=== PATIENT | female | born 2005 | race Caucasian/White ===

== ENCOUNTER 2024-01-21 16:19 | Emergency (ER) | payer BC, MEDICAID | END 2024-01-21 17:02 | disposition left against medical advice (07) | LOC: MW.ED 16:19 | DX: Z53.21 Procedure and treatment not carried out due to patient leaving prior to being seen by health care provider (principal) ==

== ENCOUNTER 2024-01-23 15:18 | Emergency (ER) | payer BC ==
[2024-01-23 16:48] LABS: BASOPHILS ABSOLUTE AUTO 0.02 K/uL (0.00-0.30); BASOPHILS PERCENT AUTO 0.3 % (0.0-1.0); EOSINOPHILS ABSOLUTE AUTO 0.05 K/uL (0.00-0.70); EOSINOPHILS PERCENT AUTO 0.7 % (0.0-5.0); HEMATOCRIT 34.8 % (37.0-47.0); HEMOGLOBIN 12.8 g/dL (12.0-16.0); IMMATURE GRAN ABSOLUTE AUTO 0.02 K/uL (0.00-0.05); IMMATURE GRAN PERCENT AUTO 0.3 % (0.0-0.4); LYMPHOCYTES ABSOLUTE AUTO 2.04 K/uL (2.00-8.80); LYMPHOCYTES PERCENT AUTO 26.8 % (50.0-65.0); MEAN CORPUSCULAR HGB CONC 36.8 g/dL (32.0-36.0); MEAN CORPUSCULAR VOLUME 84.3 fL (83.0-99.0); MEAN PLATELET VOLUME 8.9 fL (9.4-12.3); MONOCYTES ABSOLUTE AUTO 0.48 K/uL (0.10-1.40); MONOCYTES PERCENT AUTO 6.3 % (2.0-10.0); NEUTROPHILS PERCENT AUTO 65.6 % (35.0-45.0); PLATELET COUNT,PLT 195 K/uL (150-400); RED BLOOD CELL COUNT 4.13 M/uL (4.10-5.30); WHITE BLOOD CELL COUNT,WBC 7.61 K/uL (4.5-13.5)
[2024-01-23 17:17] LABS: A/G RATIO 1.2 (0.9-1.6); ALBUMIN 3.7 g/dL (3.4-5.0); BILIRUBIN TOTAL 2.6 mg/dL (0.2-1.0); CALCIUM 8.7 mg/dL (8.5-10.1); CARBON DIOXIDE,CO2 26.4 mmol/L (21.0-32.0); CREATININE 0.6 mg/dL (0.6-1.0); EST CRCL DRUG DOSING (CG) 123.11 mL/min; POTASSIUM,K 3.5 mmol/L (3.5-5.1); PROTEIN TOTAL,TP 6.7 g/dL (6.4-8.2)
[2024-01-23] MEDS: Ondansetron 4 MG Tab.DIS PO ONE (17:33)
[2024-01-23 17:38] LABS: APPEARANCE,URINE CLEAR; BILIRUBIN,URINE NEGATIVE (NEGATIVE); COLOR,URINE YELLOW; GLUCOSE,URINE NEGATIVE (NEGATIVE); KETONES,URINE NEGATIVE (NEGATIVE); LEUKOCYTE ESTERASE,URINE NEGATIVE (NEGATIVE); NITRITE,URINE NEGATIVE (NEGATIVE); OCCULT BLOOD,URINE NEGATIVE (NEGATIVE); PH,URINE 7.5 (5.0-8.0); PROTEIN,URINE TRACE mg/dL (NEGATIVE)
[2024-01-23 17:46] LABS: BACTERIA,URINE FEW (NEGATIVE); MUCUS,URINE LIGHT (NONE-MOD); RBC,URINE 0-1 (0-2/HPF); SQUAMOUS EPITHELIAL CELLS,UR MODERATE; WBC,URINE 0-2 (0-5/HPF)
== END 2024-01-23 18:48 | disposition home or self-care (01) ==
LOC: MW.ED 15:18
DX: O21.9 Vomiting of pregnancy, unspecified (principal); R82.71 Bacteriuria; R10.30 Lower abdominal pain, unspecified; Z79.899 Other long term (current) drug therapy; Z3A.01 Less than 8 weeks gestation of pregnancy
CPT/HCPCS: 36415; 76801; 80053; 81001; 83690; 84702; 85025; 99284; A9270

== ENCOUNTER 2024-04-01 11:42 | Emergency (ER) | payer BC ==
[2024-04-01] MEDS ORDERED: Sodium Chloride 0.9% 2.5 ML Syringe FLUSH PRN (12:26)
[2024-04-01] MEDS ORDERED: Sodium Chloride 0.9% 10 ML Syringe FLUSH PRN (12:26)
[2024-04-01] MEDS: Ondansetron 4 MG/2 ML SDV IVPUSH STA (12:42)
[2024-04-01] MEDS: Sodium Chloride 0.9% 1,000 ML IV STA (12:42)
[2024-04-01 12:43] LABS: BASOPHILS ABSOLUTE AUTO 0.02 K/uL (0.00-0.30); BASOPHILS PERCENT AUTO 0.3 % (0.0-1.0); EOSINOPHILS ABSOLUTE AUTO 0.03 K/uL (0.00-0.70); EOSINOPHILS PERCENT AUTO 0.4 % (0.0-5.0); HEMATOCRIT 33.5 % (37.0-47.0); IMMATURE GRAN ABSOLUTE AUTO 0.02 K/uL (0.00-0.05); IMMATURE GRAN PERCENT AUTO 0.3 % (0.0-0.4); LYMPHOCYTES ABSOLUTE AUTO 0.79 K/uL (2.00-8.80); LYMPHOCYTES PERCENT AUTO 10.8 % (50.0-65.0); MEAN CORPUSCULAR HEMOGLOBIN 30.8 pg (28.0-32.0); MEAN CORPUSCULAR HGB CONC 35.8 g/dL (32.0-36.0); MEAN CORPUSCULAR VOLUME 85.9 fL (83.0-99.0); MEAN PLATELET VOLUME 8.8 fL (9.4-12.3); MONOCYTES ABSOLUTE AUTO 0.38 K/uL (0.10-1.40); MONOCYTES PERCENT AUTO 5.2 % (2.0-10.0); PLATELET COUNT,PLT 143 K/uL (150-400); WHITE BLOOD CELL COUNT,WBC 7.34 K/uL (4.5-13.5)
[2024-04-01 12:50] LABS: APPEARANCE,URINE CLEAR; BILIRUBIN,URINE NEGATIVE (NEGATIVE); COLOR,URINE YELLOW; GLUCOSE,URINE NEGATIVE (NEGATIVE); KETONES,URINE >=80 mg/dL (NEGATIVE); LEUKOCYTE ESTERASE,URINE NEGATIVE (NEGATIVE); NITRITE,URINE NEGATIVE (NEGATIVE); OCCULT BLOOD,URINE NEGATIVE (NEGATIVE); PROTEIN,URINE NEGATIVE (NEGATIVE); UROBILINOGEN,URINE 0.2 EU/dL (<2.0)
[2024-04-01] MEDS: Dextrose 5%-0.9% NaCl 1,000 ML IV STA (13:15)
[2024-04-01 13:27] LABS: A/G RATIO 0.9 (0.9-1.6); BILIRUBIN TOTAL 1.2 mg/dL (0.2-1.0); CALCIUM 8.7 mg/dL (8.5-10.1); CARBON DIOXIDE,CO2 20.6 mmol/L (21.0-32.0); CREATININE 0.6 mg/dL (0.6-1.0); EST CRCL DRUG DOSING (CG) 124.51 mL/min; POTASSIUM,K 3.6 mmol/L (3.5-5.1); PROTEIN TOTAL,TP 6.5 g/dL (6.4-8.2)
== END 2024-04-01 14:15 | disposition home or self-care (01) ==
LOC: MW.ED 11:42
DX: O98.519 Other viral diseases complicating pregnancy, unspecified trimester (principal); A08.4 Viral intestinal infection, unspecified; Z79.899 Other long term (current) drug therapy; Z75.8 Other problems related to medical facilities and other health care; Z3A.00 Weeks of gestation of pregnancy not specified
CPT/HCPCS: 36415; 80053; 81003; 85025; 87428; 87651; 96361; 96374; 99284; J2405; J7030; J7042